=== PATIENT | male | born 1945 | race Caucasian/White ===

== ENCOUNTER 2018-09-10 11:04 | Inpatient (IN) ==
[~2018-09-10 11:04] MED LIST: Propofol 500 MG/50 ML INFUS..BTL ONE
[2018-09-10] MEDS ORDERED: Lidocaine -MPF 2% 2 ML VIAL ONE ×2 (11:05→13:20)
[2018-09-10] MEDS ORDERED: Tranexamic Acid 1,000 MG/10 ML VIAL ONE ×2 (11:05→13:20)
[2018-09-10] MEDS ORDERED: *HR* Propofol 200 MG/20 ML VIAL IVP ONE ×2 (11:05→13:20)
[2018-09-10] MEDS ORDERED: Ringers Solution, Lactated 1,000 ML IVC SCH ×2 (11:30→15:10)
[2018-09-10] MEDS ORDERED: CeFAZolin Syr 2,000MG/20 ML 2,000 MG/20 ML SYRINGE IVPB ONE (11:30)
--- NOTE | 2018-09-10 11:34 | History & Physical Report ---
Date of Encounter: 09/10/18 Time of Encounter: 11:34 24 Hour HP Update - Instructions Instructions: If the History and Physical is less than 30 days old and was completed prior to A.M. admission and or procedure and has NOT been updated on calendar day of procedure please complete this update prior to performing procedure. - Update Patient reports changes in Medical Condition: No Changes in examination, assessment, or condition: No Changes in Medication: No Preop tests/diagnostics Reviewed: Yes Surgery Remains Indicated: Yes Consent for Planned Operative Procedure(s) Verified: Yes - Pre-Operative Checklist Preoperative Checklist Indicated: No Prophylactic Antibiotic Ordered: Yes Is VTE Prophylaxis Indicated?: Yes
[2018-09-10] MEDS ORDERED: *HR* Promethazine 25 MG/ML VIAL IVP PRN ×2 (12:08→15:10)
[2018-09-10] MEDS ORDERED: traMADol 50 MG TABLET PO ONE (12:08)
[2018-09-10] MEDS ORDERED: Acetaminophen IV 1,000 MG/100 ML INFUS..BTL IVPB ONE (12:08)
[2018-09-10] MEDS ORDERED: Albuterol 2.5 MG/3 ML NEBULIZER IH ONE (12:08)
[2018-09-10] MEDS ORDERED: *HR* HYDROmorphone (PF) 1 MG/ML SYRINGE IVP PRN (12:08)
[2018-09-10] MEDS ORDERED: *HR* OxyCODONE Immed Rel 5 MG TABLET PO PRN (12:08)
[2018-09-10] MEDS ORDERED: Celecoxib 200 MG CAPSULE PO ONE (12:08)
[2018-09-10] MEDS ORDERED: Gabapentin 300 MG CAPSULE PO ONE (12:08)
[2018-09-10] MEDS ORDERED: Ondansetron 4 MG/2 ML VIAL IVP ONE (12:08)
[2018-09-10] MEDS ORDERED: Gabapentin 100 MG CAPSULE ONE (12:13)
[2018-09-10] MEDS ORDERED: Celecoxib 100 MG CAPSULE PO ONE (12:13)
[2018-09-10] MEDS ORDERED: Gabapentin 300 MG CAPSULE ONE (12:13)
[2018-09-10] MEDS ORDERED: traMADol 50 MG TABLET ONE (12:13)
[2018-09-10] MEDS ORDERED: Lidocaine -MPF 2% 5 ML VIAL ONE (12:14)
[2018-09-10] MEDS ORDERED: Acetaminophen IV 1,000 MG/100 ML INFUS..BTL ONE (12:14)
[2018-09-10] MEDS ORDERED: *HR* Midazolam HCl 2 MG/2 ML VIAL ONE (12:15)
[2018-09-10] MEDS ORDERED: *HR* PHENYLEPHRINE 1,000 MCG/10 ML SYRINGE IVP ONE ×3 (12:16→14:10)
--- NOTE | 2018-09-10 12:17 | Anesthesia Evaluation PreOp ---
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 (ANXIETY, DEPRESSION) Other Medical History: GERD (CONTROLLED) Anesthesia History: No Prior Anesthetic Complications, Past Anesthesia Alcohol Use: none Drug use: none Medications and Allergies Amlodipine Besylate 10 mg PO DAILY 09/10/18 [History] Hydroxyurea [Hydrea] 500 mg PO DAILY 09/10/18 [History] Omeprazole [PriLOSEC] 20 mg PO DAILY 09/10/18 [History] Sertraline [Zoloft] 50 mg PO HS 09/10/18 [History] Tramadol HCl [Ultram] 50 mg PO Q6H PRN 09/10/18 [History] hydroCHLOROthiazide [Hydrochlorothiazide] 25 mg PO QAM 09/10/18 [History] Allergy/AdvReac Type Severity Reaction Status Date / Time No Known Allergies Allergy Unverified 09/10/18 12:00 - Meds/Allergy Pre-op Review Medications Reviewed: Yes Allergies Reviewed: Yes Beta Blockers on Current Med List: No Anesthesia Results - Labs Laboratory Tests 08/28/18 08/28/18 11:54 11:54 Hgb 14.0 Plt Count 317 Potassium 4.0 Creatinine 1.01 Est GFR (Non-Af Amer) > 60 Glucose 87 Calcium 9.7 Anesthesia Exam Vital Signs/O2 Sat, Most Current Temp Pulse Resp BP Pulse Ox 97.9 F 92 18 151/87 97 09/10/18 11:21 09/10/18 11:21 09/10/18 11:21 09/10/18 11:21 09/10/18 11:21 Weight: 92 KG - BMI 31 NPO (# of Hours): 8 - HEENT Mallampati: II Teeth: Edentulous Denture Type: Upper: Complete, Lower: Complete - Cardiac Rhythm: Regular - Pulmonary Breath Sounds: bilateral Clear Anesthesia Assess/Plan ASA Score: 2 Anesthetic Plan: MAC, Spinal Monitoring Plan: Standard Monitors Recovery Plan: PACU
[2018-09-10] MEDS ORDERED: Ethanol\\Acetic Acid\\Na Ace\\Ben 1,000 ML IRRIG.SOLN IR ONE (12:22)
[2018-09-10] MEDS ORDERED: Propofol 500 MG/50 ML INFUS..BTL ONE ×2 (12:24→13:20)
--- NOTE | 2018-09-10 12:46 | Anesthesia Procedures ---
Date of Encounter: 09/10/18 Time of Encounter: 12:37 Procedures: Anesthesia - Epidural/Spinal Patient ID/Chart reviewed: Yes Patient examined: Yes Consent Obtained: Yes Supplemental Oxygen: Nasal Cannula Supplemental Oxygen Rate (L/min): 2 Sedation: Versed (mg): 1 Site Prep: Aseptic Technique, Sterile prep and drape, 0.5% Chlorhexidine/Alcohol Patient position: upright Local Anesthetic: Lidocaine 1% Amount of Local Anesthetic used: 2 Interspace Used: L3-L4 Blood: No CSF: Yes (24g pencan x2 passes) Paresthesia: No Spinal Dose: 3ml 0.5% bup plain isobaric Procedure: berhane procedure well, no immediate comp
--- NOTE | 2018-09-10 13:48 | Orthopedic Operative Note ---
Date of procedure: 09/10/18 Pre-op diagnosis: Left hip arthritis Post-op diagnosis: same Procedure: Procedure: Left Total Hip Replacment robotic-assisted Estimated blood loss: 200 cc Hardware: Metal and polyethylene replacement. Teresa DM Cup: 58 cup Femoral size 6 anteverted Anato stem Head: - 4head with Philomena Procedural Notes: Grade 4 arthritic changes femoral head acetabular socket, procedure performed with robotic assistance. Operative leg 5 mm shorter than nonoperative as measured by preoperative CT scan. Operative procedure: The patient was brought to the operating room and placed on the operating room table. After general anesthesia was administered the patient was placed in the lateral decubitus position with the operative leg up. All pressure points were padded appropriately and the head was stabilized in the neutral position. The operative extremity was prepped and draped in the sterile surgical fashion patient received IV antibiotic prior to skin incision. 3 Steinmann pins were placed in the iliac crest 3 cm proximal to the anterior superior iliac spine this was for the robotic-assisted sensor. This was done through a small 2 cm incision. A standard posterior approach is made to the operative hip, the incision was made through the skin and subcutaneous tissue hemostasis was obtained with Bovie cautery. Using careful sharp dissection the fascia was identified and incised exposing the external rotators. The greater trochanter was marked, and length was measured at this time utilizing robotic assistance. The external rotators were released off the greater trochanter and tagged with #2 FiberWire suture. The capsule was T'd open and the hip was brought into internal rotation. Patient noted to have grade 4 arthritic changes femoral head. The femoral neck cut was made at the appropriate level roughly 15 mm proximal to the lesser trochanter aced on preoperative templating. An anterior capsulotomy was performed for the anterior retractor. Soft tissues removed from the acetabulum. Patient noted to have grade 4 arthritic changes acetabulum. The acetabulum reference point was confirmed. The acetabulum was then mapped with robotic assistance. Based on the preoperative plan the acetabulum was reamed in one step with a 58 reamer. The 58 acetabulum was impacted with robotic assistance and 39 degrees of abduction and 19 degrees of anteversion. The hip was brought back in to internal rotation and prepared with the box shook patcher followed by the canal finder followed by the reaming process to a size 13 broaching process in 20 degrees anteversion. It was broached up to the domenica ropriate size 6 Trial reduction revealed leg lengths close to normal. The femoral implant was impacted in place in 20 degrees of anteversion. Trial reduction found the hip to be stable with -4 head and Philomena. The trials were removed and the real implants were impacted in place. The hip was reduced, patient had robotic confirmed leg length of 3 mm longer than the contralateral side. The hip had excellent stability with forward flexion to 90 degrees adduction of 30 degrees and internal rotation of 60 degrees. The hip had no shuck. The hip sat with an antibacterial solution. It was irrigated out with 2 L of pulse irrigation. The Steinmann pins were removed. The hip was closed by the PA. The deep tissue was irrigated and closed deep with #1 PDS suture superficially with 0 PDS suture and skin was closed with Dermabond and zip tie. The patient was placed in a sterile dressing and abduction pillow. The patient was extubated and transferred to the recovery room in stable condition. Anesthesia: spinal Surgeon: Quinten Edge Was there an bacteriology research assistant present: No Estimated blood loss (cc): 200 Condition: stable Disposition: PACU
--- NOTE | 2018-09-10 14:50 | Anesthesia Evaluation Post Op ---
Date of Encounter: 09/10/18 Time of Encounter: 14:49 - Discharge PostOp Status: Transfer Patient to floor (Patient's vital signs have been reviewed. Patient is stable postoperatively and has adequately recovered from anesthesia. Patient is determined to have stable airway patency and respiratory function including respiratory rate and oxygen saturation. Patient has a stable heart rate, blood pressure and adequate hydration. Patients mental status is acceptable. Patients temperature is appropriate. Pain and nausea are adequately controlled.)
[2018-09-10] MEDS ORDERED: Ondansetron 4 MG/2 ML VIAL IVP PRN (15:10)
[2018-09-10] MEDS ORDERED: traMADol 50 MG TABLET PO PRN (15:10)
[2018-09-10] MEDS ORDERED: MOM Conc 10 ML UD.LIQ PO PRN (15:10)
[2018-09-10] MEDS ORDERED: Sennosides 8.6 MG TABLET PO PRN (15:10)
[2018-09-10] MEDS ORDERED: Naloxone 0.4 MG/ML INJ IVP PRN (15:10)
[2018-09-10] MEDS: HYDROcodone BIT/Homatropine 5 MG TABLET PO PRN ×2 (15:53→20:40)
[2018-09-10 16:20] LABS: Hematocrit 37.9 % (37.5-50.1); Hemoglobin 12.4 g/dL (12.9-16.9)
[2018-09-10] MEDS: Ascorbic Acid 500 MG TABLET PO SCH (17:22)
[2018-09-10] MEDS: *HR* OxyCODONE Immed Rel 5 MG TABLET PO PRN ×2 (17:22→22:52)
[2018-09-10] MEDS: *HR* Enoxaparin 30 MG/0.3 ML SYRINGE SQ SCH (17:22)
[2018-09-10] MEDS ORDERED: *HR* Enoxaparin 30 MG/0.3 ML SYRINGE SQ SCH (18:00)
[2018-09-10] MEDS: Temazepam 15 MG CAPSULE PO PRN (22:52)
[2018-09-11] MEDS: HYDROcodone BIT/Homatropine 5 MG TABLET PO PRN (02:02)
[2018-09-11 04:29] LABS: Basophils % 0.5 %; Eosinophils # 0.1 K/mcL (0.0-0.6); Eosinophils % 0.7 %; Hematocrit 37.9 % (37.5-50.1); Hemoglobin 12.5 g/dL (12.9-16.9); Immature Granulocytes % 0.8 % (0-4); Lymphocytes # 1.1 K/mcL (0.6-4.6); Mean Corpuscular Hemoglobin 33.6 pg (28.0-33.3); Mean Corpuscular Volume 101.9 fL (83.0-100.0); Monocytes # 0.7 K/mcL (0.0-1.3); Monocytes % 8.4 %; Neutrophils # 6.4 K/mcL (1.6-8.9); Platelet Count 311 K/mcL (140-400); Red Blood Count 3.72 M/mcL (4.19-5.50); Red Cell Distribution Width 16.1 % (11.5-14.5); Segmented Neutrophils % 76.6 %
[2018-09-11 04:40] LABS: BUN/Creatinine Ratio 26 (6-26); Blood Urea Nitrogen 26 mg/dL (8-23); Calcium 9.1 mg/dL (8.6-10.3); Carbon Dioxide 28 mEq/L (23-29); Chloride 98 mEq/L (98-107); Glucose 143 mg/dL (70-105); Osmolality,Calculated 291 (280-300); Potassium 3.8 mEq/L (3.5-5.1); Sodium 137 mEq/L (136-145); eGFR For Non-African Americans > 60 (> 60)
[2018-09-11] MEDS: *HR* Enoxaparin 30 MG/0.3 ML SYRINGE SQ SCH ×2 (05:28→17:14)
--- NOTE | 2018-09-11 06:51 | Orthopedics Progress Note ---
Date of Encounter: 09/11/18 Time of Encounter: 06:50 Subjective Interval history: Patient was seen this morning doing well without complaints. Afebrile vital signs stable. Operative extremity: Neurovascularly intact Dressing clean dry and intact Calves nontender Assessment and plan: Continue with postoperative care Hematocrit 37 Objective Vital signs: Vital Signs Temp Pulse Pulse Resp BP Pulse Ox 09/11/18 06:20 99.9 F H 94 17 153/78 93 09/11/18 05:33 79 09/11/18 03:52 98.1 F 88 16 142/72 96 09/10/18 23:05 97.9 F 91 17 169/78 95 09/10/18 23:00 88 09/10/18 21:04 77 09/10/18 19:04 98.1 F 82 17 146/72 93 09/10/18 15:50 97.5 F L 78 16 131/73 97 09/10/18 15:23 97.5 F L 78 17 131/73 97 09/10/18 15:04 97.7 F 76 14 128/79 97 09/10/18 14:54 97.7 F 71 14 126/76 96 09/10/18 14:44 80 16 115/77 94 09/10/18 14:34 73 16 124/70 97 09/10/18 14:24 98.7 F 73 16 95/57 94 09/10/18 12:50 80 16 81/53 94 09/10/18 12:45 80 16 115/63 94 09/10/18 12:27 80 16 134/97 94 09/10/18 11:21 97.9 F 92 18 151/87 97 Intake and Output 09/10/18 09/10/18 09/11/18 15:59 23:59 07:59 Intake Total 120 / 660 540 / 660 100 / 100 Output Total 200 / 1050 850 / 1050 200 / 200 Balance -80 / -390 -310 / -390 -100 / -100 Intake: IV Fluids 120 / 220 100 / 220 Ofirmev 1,000 mg/100 ml 1,000 100 / 100 mg In 100 ml @ 400 mls/hr IVPB ONCE ONE Rx#:[id number] Ancef Syringe 2,000 MG/20 ML 2, 20 / 20 000 mg In 20 ml @ 200 mls/hr IVPB PREOP ONE Rx#:[id number] Ancef 2,000 MG In 0.9 % Sodium 100 / 100 Chloride 100 ML @ 200 mls/hr IVPB Q8H [facility] Rx#:[id number] Oral 440 / 440 100 / 100 Output: Estimated Blood Loss 200 / 200 Catheter 850 / 850 200 / 200 Other: Weight 92.079 kg Blood Glucose* 146 - Labs CBC & BMP: 09/11/18 03:38 09/11/18 03:38 Labs: Abnormal lab results RBC 3.72 M/mcL (4.19-5.50) L 09/11/18 03:38 Hgb 12.5 g/dL (12.9-16.9) L 09/11/18 03:38 MCV 101.9 fL (83.0-100.0) H 09/11/18 03:38 MCH 33.6 pg (28.0-33.3) H 09/11/18 03:38 RDW 16.1 % (11.5-14.5) H 09/11/18 03:38 MPV 9.0 fL (9.4-12.4) L 09/11/18 03:38 BUN 26 mg/dL (8-23) H 09/11/18 03:38 Glucose 143 mg/dL (70-105) H 09/11/18 03:38 - VTE Documentation of Mechanical Device: Venous foot pump, device Consult Discharge Plan - Plan Referrals: Chery Strong, HUNTING GUIDE [Primary Care Provider] -
[2018-09-11] MEDS: amLODIPine 5 MG TABLET PO SCH (08:09)
[2018-09-11] MEDS: hydroCHLOROthiazide 25 MG TABLET PO SCH (08:10)
[2018-09-11] MEDS: Hydroxyurea 500 MG CAPSULE PO SCH (08:10)
[2018-09-11] MEDS: Ascorbic Acid 500 MG TABLET PO SCH ×2 (08:10→17:13)
[2018-09-11] MEDS: Multivit/Ca/Min/Fe/FA 1 TAB TABLET PO SCH (08:10)
--- NOTE | 2018-09-11 09:04 | Event Note ---
Date of Encounter: 09/11/18 Time of Encounter: 11:10 Date of procedure: 09/10/18 Pre-op diagnosis: Left hip arthritis Post-op diagnosis: same Procedure: Procedure: Left Total Hip Replacment robotic-assisted POD#1 Patient seen at bedside. A&Ox3 Dressing and incision c/d/i No calf tenderness, erythema, or warmth. Neurovascularly intact b/l LE. Labwork, vitals, and medications reviewed. Pain control: Adequate Participating in PT. All questions and concerns addressed. Educated on use of incentive spirometer, ambulation, and hydration. Patient educated on post-operative restrictions and care. Addressed: Patient incontinent since prostate cancer surgery - states this is at his baseline. D/C plan: ECF - pending placement Short CBC 09/11/18 09/10/18 Range/Units 03:38 15:28 WBC 8.3 (4.3-11.1) K/mcL Hgb 12.5 L 12.4 L (12.9-16.9) g/dL Hct 37.9 37.9 (37.5-50.1) % Plt Count 311 (140-400) K/mcL Neutrophils # 6.4 (1.6-8.9) K/mcL BMP 09/11/18 Range/Units 03:38 Sodium 137 (136-145) mEq/L Potassium 3.8 (3.5-5.1) mEq/L Chloride 98 (98-107) mEq/L Carbon Dioxide 28 (23-29) mEq/L BUN 26 H (8-23) mg/dL Creatinine 1.00 (0.70-1.30) mg/dL Glucose 143 H (70-105) mg/dL Calcium 9.1 (8.6-10.3) mg/dL Vital Signs Temp Pulse Pulse Resp BP Pulse Ox 09/11/18 11:20 98.2 F 101 16 135/70 94 09/11/18 06:20 99.9 F H 94 17 153/78 93 09/11/18 05:33 79 09/11/18 03:52 98.1 F 88 16 142/72 96 09/10/18 23:05 97.9 F 91 17 169/78 95 09/10/18 23:00 88 09/10/18 21:04 77 09/10/18 19:04 98.1 F 82 17 146/72 93 09/10/18 15:50 97.5 F L 78 16 131/73 97 09/10/18 15:23 97.5 F L 78 17 131/73 97 09/10/18 15:04 97.7 F 76 14 128/79 97 09/10/18 14:54 97.7 F 71 14 126/76 96 09/10/18 14:44 80 16 115/77 94 09/10/18 14:34 73 16 124/70 97 09/10/18 14:24 98.7 F 73 16 95/57 94 Intake and Output 09/10/18 09/11/18 09/11/18 23:59 07:59 15:59 Intake Total 540 / 660 100 / 640 540 / 640 Output Total 850 / 1050 200 / 200 Balance -310 / -390 -100 / 440 540 / 440 Intake: IV Fluids 100 / 220 Ancef 2,000 MG In 0.9 % Sodium 100 / 100 Chloride 100 ML @ 200 mls/hr IVPB Q8H [facility] Rx#:[id number] Oral 440 / 440 100 / 640 540 / 640 Output: Catheter 850 / 850 200 / 200 Other: Meal Lunch Percent of Meal Consumed 75% # Voids 1 Blood Glucose* 146
--- NOTE | 2018-09-11 09:04 | Physician Discharge Referral ---
ExtendedCare Referral Info Transfer To: [facility] Provider in Charge: Dr. Quinten Edge - Diagnosis (1) Status post total hip replacement, left Priority: Primary Status: Acute (2) Arthritis of left hip Priority: Primary Status: Chronic (3) Bladder stone Priority: Secondary Status: Chronic (4) HTN (hypertension) Priority: Secondary Status: Chronic (5) History of prostate cancer Priority: Secondary Status: Chronic (6) Polycythemia vera Priority: Secondary Status: Chronic (7) Incontinence of urine Priority: Secondary Status: Chronic Expected Duration of Placement: less than 30 days Prognosis: Good Aware of Diagnosis: Patient Aware of Prognosis: Patient - Transfer Medications Prescriptions: Aspirin Enteric Coated [Aspirin EC] 325 mg PO BID 10 Days #20 tablet. Docusate Sodium [Colace] 100 mg PO BID 5 Days #10 capsule Acetaminophen [Non-Aspirin Extra Strength] 500 mg PO Q6H PRN 7 Days #28 tablet PRN Reason: Mild To Moderate Pain OxyCODONE Immed Rel [Roxicodone 5 MG] 5 mg PO Q6HR PRN 5 Days #20 tablet PRN Reason: Severe Pain Home Medications: Amlodipine Besylate 10 mg PO DAILY 09/10/18 [History] Hydroxyurea [Hydrea] 500 mg PO DAILY 09/10/18 [History] Omeprazole [PriLOSEC] 20 mg PO DAILY 09/10/18 [History] Sertraline [Zoloft] 50 mg PO HS 09/10/18 [History] Tramadol HCl [Ultram] 50 mg PO Q6H PRN 09/10/18 [History] hydroCHLOROthiazide [Hydrochlorothiazide] 25 mg PO QAM 09/10/18 [History] Acetaminophen [Non-Aspirin Extra Strength] 500 mg PO Q6H PRN 7 Days #28 tablet 09/11/18 [Rx] Aspirin Enteric Coated [Aspirin EC] 325 mg PO BID 10 Days #20 tablet. 09/11/18 [Rx] Docusate Sodium [Colace] 100 mg PO BID 5 Days #10 capsule 09/11/18 [Rx] OxyCODONE Immed Rel [Roxicodone 5 MG] 5 mg PO Q6HR PRN 5 Days #20 tablet 09/11/18 [Rx] Allergies/Adverse Reactions: Allergy/AdvReac Type Severity Reaction Status Date / Time No Known Allergies Allergy Unverified 09/10/18 12:00 - Respiratory Orders Smoking Cessation: Smoking cessation has been advised. For more information, call the [place] Tobacco Quit Line at 8-058-KQGM-NOW. - Ancillary Orders May use pressure relief devices daily prn, May go on SHADIA w/family/respon green party w/meds at nurse discretion PRN, May consult with Dentist, General Accountant, Boxing Instructor PRN - Mobility Orders Chair, Ambulate - Rehabiliation Orders Rehab Potential: Good Rehab Orders: Evaluation for Physical Therapy, Evaluation for Occupational Therapy Other: Total Hip replacement Precautions Apply cold therapy 3-6x/day for 20 minutes at a time. Encourage ambulation throughout the day and incentive spirometer 10x/hour. Elevate affected extremity as tolerated. Brace: Wear hip abduction pillow when laying/sleeping - Treatments Skin tear care topically daily PRN per policy List/Other: Opsite placed. Keep dressing intact until first follow up appointment. If greater than 50% saturated, notify office, remove dressing and place appropriate dressing back in place. Leave Zipline intact. Opsite dressing is water resistant, not water-proof. OK to shower, but do not get dressing wet. - Diet Orders Regular CERTIFICATION: I certify that the transfer of the above named patient to an Extended Care Facility is necessary for the continuing treatment of the diagnosis listed. The above information is true and accurate reflection of patient's current condition. Confidential - Redisclosure prohibited without a patient's written consent.
--- NOTE | 2018-09-11 09:04 | Discharge Summary ---
Orders not resulted at time of discharge: Pending orders 09/10/18 13:58 Surgical Pathology [PTH] Routine 09/12/18 04:00 Basic Metabolic Panel DAILY Complete Blood Count [HEME] DAILY Date of Encounter: 09/13/18 Time of Encounter: 09:05 - Discharge Diagnosis (1) Arthritis of left hip Priority: Primary Status: Chronic (2) Status post total hip replacement, left Priority: Primary Status: Acute (3) HTN (hypertension) Priority: Secondary Status: Chronic Qualifiers: Hypertension type: unspecified Qualified Code(s): I10 - Essential (primary) hypertension (4) Polycythemia vera Priority: Secondary Status: Chronic (5) History of prostate cancer Priority: Secondary Status: Chronic (6) Bladder stone Priority: Secondary Status: Chronic - Hospital Course Hospital course: Mr. Candelaria is a 72 year old male Date of procedure: 09/10/18 Pre-op diagnosis: Left hip arthritis Post-op diagnosis: same Procedure: Procedure: Left Total Hip Replacment robotic-assisted POD#3 Patient seen at bedside. A&Ox3 Dressing and incision c/d/i No calf tenderness, erythema, or warmth. Neurovascularly intact b/l LE. Labwork, vitals, and medications reviewed. Pain control: Adequate Participating in PT. All questions and concerns addressed. Educated on use of incentive spirometer, ambulation, and hydration. Patient educated on post-operative restrictions and care. Addressed: see above. D/C plan: [facility] for rehab Outpatient ortho follow up arranged. - Time Spent with Patient Total time spent providing and/or coordinating discharge services: - Discharge Medications Prescriptions: New Docusate Sodium [Colace] 100 mg PO BID 5 Days #10 capsule Acetaminophen [Non-Aspirin Extra Strength] 500 mg PO Q6H PRN 7 Days #28 tablet PRN Reason: Mild To Moderate Pain OxyCODONE Immed Rel [Roxicodone 5 MG] 5 mg PO Q6HR PRN 5 Days #20 tablet PRN Reason: Severe Pain Aspirin Enteric Coated [Aspirin EC] 325 mg PO BID 10 Days #20 tablet.dr Continued Tramadol HCl [Ultram] 50 mg PO Q6H PRN PRN Reason: Pain Sertraline [Zoloft] 50 mg PO HS Omeprazole [PriLOSEC] 20 mg PO DAILY Hydroxyurea [Hydrea] 500 mg PO DAILY hydroCHLOROthiazide [Hydrochlorothiazide] 25 mg PO QAM Amlodipine Besylate 10 mg PO DAILY Home Medications: Amlodipine Besylate 10 mg PO DAILY 09/10/18 [History] Hydroxyurea [Hydrea] 500 mg PO DAILY 09/10/18 [History] Omeprazole [PriLOSEC] 20 mg PO DAILY 09/10/18 [History] Sertraline [Zoloft] 50 mg PO HS 09/10/18 [History] Tramadol HCl [Ultram] 50 mg PO Q6H PRN 09/10/18 [History] hydroCHLOROthiazide [Hydrochlorothiazide] 25 mg PO QAM 09/10/18 [History] Acetaminophen [Non-Aspirin Extra Strength] 500 mg PO Q6H PRN 7 Days #28 tablet 09/11/18 [Rx] Aspirin Enteric Coated [Aspirin EC] 325 mg PO BID 10 Days #20 tablet. 09/11/18 [Rx] Docusate Sodium [Colace] 100 mg PO BID 5 Days #10 capsule 09/11/18 [Rx] OxyCODONE Immed Rel [Roxicodone 5 MG] 5 mg PO Q6HR PRN 5 Days #20 tablet 09/11/18 [Rx] Allergies/Adverse Reactions: Allergy/AdvReac Type Severity Reaction Status Date / Time No Known Allergies Allergy Unverified 09/10/18 12:00 Date of admission: 09/10/18 15:09 Primary care physician: Chery Strong CNP Consults: 09/10/18 15:10 Consult to Nurse Navigator [CONS] Routine Comment: ortho navigator Consult to Nutrition [CONS] Routine Comment: Consulting Provider: NUTRITION Reason for Dietary Consult: Other Other:: Proper nutrition to facilitate wound healing Consult to Occupational Therapy [CONS] Routine Comment: Evaluate, develop and implement POC Reason for Consult: total hip replacement Does patient have active BEDREST order?: No Is patient medically & hemodynamically stable?: Yes Consult to Physical Therapy [CONS] Routine Comment: Evaluate, develop and implement POC Reason for Consult: total hip replacement Does patient have active BEDREST order?: No Is patient medically & hemodynamically stable?: Yes Consult to Pillowcase Turner [CONS] Routine Reason for SW Consult: post op joint replacement RT Post Op Consult [CONS] Routine Discharging clinician: Quinten Edge Anticipated date of discharge: 09/13/18 - VTE Documentation of Mechanical Device: Venous foot pump, device Labs on day of discharge: Labs from last 24 hours 09/11/18 09/11/18 09/10/18 03:38 03:38 15:28 WBC 8.3 RBC 3.72 L Hgb 12.5 L 12.4 L Hct 37.9 37.9 MCV 101.9 H MCH 33.6 H MCHC 33.0 RDW 16.1 H Plt Count 311 MPV 9.0 L Immature Gran % 0.8 Seg Neutrophils % 76.6 Lymphocytes % 13.0 Monocytes % 8.4 Eosinophils % 0.7 Basophils % 0.5 Neutrophils # 6.4 Lymphocytes # 1.1 Monocytes # 0.7 Eosinophils # 0.1 Basophils # 0.0 Sodium 137 Potassium 3.8 Chloride 98 Carbon Dioxide 28 BUN 26 H Creatinine 1.00 Est GFR ( Amer) > 60 Est GFR (Non-Af Amer) > 60 BUN/Creatinine Ratio 26 Glucose 143 H Calculated Osmolality 291 Calcium 9.1 - Impressions ITS Impressions Hip X-Ray 09/10/18 01:00 IMPRESSION: Postsurgical changes from left total hip arthroplasty. No evidence of acute osseous abnormalities. The surgical hardware appears in appropriate position. D/ / Ruben Li MD / Ruben Li MD Interpreting Provider: Ruben Li MD - Patient Status Disposition: Transfer Inpatient Rehab Fac Condition: Good Functional capacity at discharge: uses cane/walker Overall status at discharge: patient is progressing back to baseline - Discharge Instructions Follow Up With: Chery Strong CNP [Primary Care Provider] - Elisabet Aguirre PAC [Physician Resident Care Supervisor] - 09/20/18 9:45 am Additional Instructions: Discharge Instructions: Total Hip Replacement Please call [facility] ([phone]), your Primary Care Physician, or report to the Emergency Room if you have any of the following symptoms: Nausea, vomiting, fever greater that 101.5, swelling, chest pain, shortness of breath, increased pain/redness/drainage/odor for your incision site, numbness/tingling, or any other concerning symptoms. ACTIVITY:Weight-bearing as tolerated for 8 weeks with hip dislocation precautions that physical therapy taught you. You may progress as tolerated under the guidance of your physical therapist. You do not need to sleep with a pillow between your legs. You can also seep on the operative side or on your stomach. Incentive Spirometer 10 times an hour. MEDICATIONS: Upon discharge resume your home medications. Take all the medications as prescribed. Take a stool softener if taking narcotic pain medications. Stool softeners are only effective if you drink enough fluids. Drink 6-8 glass of water or fluids a day, unless this is not allowed for another health problem. Despite using stool softeners, if you haven't had a bowel movement in 3 days, please switch to a gentle laxative. Gentle laxatives are sold over the counter. You should have a bowel movement within 24 hours, if not call the office. You will be discharged from the hospital with a prescription for pain medication. You are encouraged to decrease the use of narcotic pain medication as tolerated. Should you require a refill, please call the office. [facility] prescribes narcotic pain medication for only 4-6 weeks after surgery. If you require pain medication beyond this time period, you may be referred to your Primary Care Physician or to the Pain Clinic for further evaluation. Plan ahead for refills on pain medication as many narcotics either need to be picked up at the office or mailed. It is best to call 48-72 hours in advance of needing a prescription refill so you don't run out of medication. To help control the post-operative pain, you may take NSAIDs (Aleve,Advil, Motrin, ibuprofen, naprosyn) or Tylenol as prescribed on the bottle in addition to the pain medication. ANTICOAGULATION (blood thinners): Continue your Aspirin, Lovenox or Coumadin as prescribed to help prevent a blood clot in the leg or in the lungs. As long as your incision remains dry and you tolerate the NSAIDs (Aleve, Advil, Motrin, Ibuprofen, Naprosyn), it is OK to use the NSAIDS while you are taking your anticoagulation medication. Should your incision start to drain, stop the NSAID and contact our office. Common symptoms of blood clot in the legs include: localized pain, swelling, calf tenderness, redness or discoloration of the skin. Blood clot in the lung symptoms include: shortness of breath, rapid pulse, sweating, and chest pain that worsens with deep breathing, coughing up blood, lightheadedness, feelings of anxiety. If you experience any of these symptoms notify your physician immediately, go to the emergency room, or if having trouble breathing, call 911. WOUND CARE: Leave the dressing on for 7 to 10days. You may change the dressing if it is saturated greater than 50%. Do not get the dressing wet at anytime. Wash your hands with antibacterial soap, rinse and dry prior to any wound care. If you have shaniqua the visiting nurse or rehab facility can remove the stapes 10-14 days after surgery and place steri-strips across the wound. Leave the steri-strips in place until they fall off on their own. You may let water from the shower run on top of the steri-strips. If you do not have a visiting nurse or rehab facility, you will need to return to the office at 10-14 days for the shaniqua to be removed. If you have itching or redness around the dressing call the office. FOLLOW-UP: Please follow up with your surgeon in the orthopedic clinic in 6 weeks from the day of surgery. If you have shaniqua that need to be removed, you will need to come back to the office in 10-14 days from the day of surgery. - Diet and Activity Activity: as per physical therapy Diet: advance to your usual diet
[2018-09-11] MEDS: tiZANidine 4 MG TABLET PO PRN ×2 (10:40→17:13)
[2018-09-11] MEDS: *HR* OxyCODONE Immed Rel 5 MG TABLET PO PRN ×3 (10:41→22:40)
[2018-09-12] MEDS: *HR* OxyCODONE Immed Rel 5 MG TABLET PO PRN ×3 (06:15→20:31)
[2018-09-12] MEDS: *HR* Enoxaparin 30 MG/0.3 ML SYRINGE SQ SCH ×2 (06:16→17:03)
[2018-09-12] MEDS: tiZANidine 4 MG TABLET PO PRN ×2 (06:17→14:36)
[2018-09-12 08:28] LABS: Basophils # 0.1 K/mcL (0.0-0.2); Basophils % 0.6 %; Eosinophils % 0.5 %; Immature Granulocytes % 1.5 % (0-4); Lymphocytes # 0.9 K/mcL (0.6-4.6); Lymphocytes % 11.5 %; Mean Corpuscular HGB Conc 33.3 g/dL (31.6-35.5); Mean Corpuscular Hemoglobin 34.3 pg (28.0-33.3); Mean Corpuscular Volume 102.8 fL (83.0-100.0); Mean Platelet Volume 9.4 fL (9.4-12.4); Monocytes # 0.6 K/mcL (0.0-1.3); Monocytes % 7.6 %; Neutrophils # 6.3 K/mcL (1.6-8.9); Platelet Count 265 K/mcL (140-400); Red Blood Count 3.21 M/mcL (4.19-5.50); Red Cell Distribution Width 15.9 % (11.5-14.5); Segmented Neutrophils % 78.3 %
[2018-09-12 08:30] LABS: BUN/Creatinine Ratio 25 (6-26); Blood Urea Nitrogen 33 mg/dL (8-23); Calcium 9.2 mg/dL (8.6-10.3); Carbon Dioxide 29 mEq/L (23-29); Chloride 96 mEq/L (98-107); Glucose 163 mg/dL (70-105); Osmolality,Calculated 285 (280-300); Sodium 132 mEq/L (136-145); eGFR For Non-African Americans 54 (> 60)
[2018-09-12] MEDS: Multivit/Ca/Min/Fe/FA 1 TAB TABLET PO SCH (10:01)
[2018-09-12] MEDS: amLODIPine 5 MG TABLET PO SCH (10:01)
[2018-09-12] MEDS: Ascorbic Acid 500 MG TABLET PO SCH ×2 (10:01→17:03)
[2018-09-12] MEDS: Hydroxyurea 500 MG CAPSULE PO SCH (10:01)
[2018-09-12] MEDS: hydroCHLOROthiazide 25 MG TABLET PO SCH (10:02)
[2018-09-12] MEDS: HYDROcodone BIT/Homatropine 5 MG TABLET PO PRN (10:11)
--- NOTE | 2018-09-12 13:00 | Event Note ---
Date of Encounter: 09/12/18 Time of Encounter: 11:30 Date of procedure: 09/10/18 Pre-op diagnosis: Left hip arthritis Post-op diagnosis: same Procedure: Procedure: Left Total Hip Replacment robotic-assisted POD#2 Patient seen at bedside. A&Ox3 Dressing and incision c/d/i No calf tenderness, erythema, or warmth. Neurovascularly intact b/l LE. Labwork, vitals, and medications reviewed. Pain control: Adequate Participating in PT. All questions and concerns addressed. Educated on use of incentive spirometer, ambulation, and hydration. Patient educated on post-operative restrictions and care. Addressed: Patient incontinent since prostate cancer surgery - states this is at his baseline. D/C plan: [facility]CF - discharge to [facility] 09/13 Short CBC 09/12/18 Range/Units 07:55 WBC 8.1 (4.3-11.1) K/mcL Hgb 11.0 L D (12.9-16.9) g/dL Hct 33.0 L (37.5-50.1) % Plt Count 265 (140-400) K/mcL Neutrophils # 6.3 (1.6-8.9) K/mcL BMP 09/12/18 Range/Units 07:55 Sodium 132 L (136-145) mEq/L Potassium 4.0 (3.5-5.1) mEq/L Chloride 96 L (98-107) mEq/L Carbon Dioxide 29 (23-29) mEq/L BUN 33 H (8-23) mg/dL Creatinine 1.30 (0.70-1.30) mg/dL Glucose 163 H (70-105) mg/dL Calcium 9.2 (8.6-10.3) mg/dL Vital Signs Temp Pulse Pulse Resp BP Pulse Ox 09/12/18 10:29 97.8 F 74 16 127/69 94 09/12/18 06:34 98.7 F 74 18 180/75 94 09/12/18 03:37 98.4 F 98 17 122/51 94 09/12/18 00:03 98.4 F 79 17 113/66 95 09/11/18 23:00 91 09/11/18 18:25 98.4 F 90 18 149/70 100 09/11/18 15:54 99.1 F 100 18 151/74 97 Intake and Output 09/11/18 09/12/18 09/12/18 23:59 07:59 15:59 Intake Total 240 / 1280 480 / 480 Output Total 100 / 500 250 / 250 Balance 140 / 780 -250 / 230 480 / 230 Intake: Oral 240 / 1180 480 / 480 Output: Urine 100 / 300 250 / 250 Other: Meal Dinner Breakfast Percent of Meal Consumed 100% 10% # Voids 1 Weight 95 kg Patient Weight 09/12/18 23:59 Weight 95 kg
[2018-09-13] MEDS: Temazepam 15 MG CAPSULE PO PRN (00:43)
[2018-09-13] MEDS: *HR* Enoxaparin 30 MG/0.3 ML SYRINGE SQ SCH (06:06)
[2018-09-13] MEDS: *HR* OxyCODONE Immed Rel 5 MG TABLET PO PRN ×2 (06:06→14:43)
--- NOTE | 2018-09-13 06:24 | Orthopedics Progress Note ---
Date of Encounter: 09/13/18 Time of Encounter: 06:23 Subjective Interval history: Patient was seen this morning doing well without complaints. Afebrile vital signs stable. Operative extremity: Neurovascularly intact Dressing clean dry and intact Calves nontender Assessment and plan: Continue with postoperative care Hematocrit 33 discharged today Objective Vital signs: Vital Signs Temp Pulse Resp BP Pulse Ox 09/13/18 04:20 98.1 F 80 17 152/74 96 09/12/18 22:38 98.1 F 104 16 156/76 94 09/12/18 19:09 98.7 F 106 16 152/69 96 09/12/18 14:25 99.3 F 108 18 170/51 96 09/12/18 10:29 97.8 F 74 16 127/69 94 09/12/18 06:34 98.7 F 74 18 180/75 94 Intake and Output 09/12/18 09/12/18 09/13/18 15:59 23:59 07:59 Intake Total 960 / 1550 590 / 1550 Output Total 600 / 1700 850 / 1700 Balance 360 / -150 -260 / -150 Intake: Oral 960 / 1550 590 / 1550 Output: Urine 600 / 1700 850 / 1700 Other: Meal Lunch Dinner Percent of Meal Consumed 50% 100% - Labs CBC & BMP: 09/12/18 07:55 09/12/18 07:55 Labs: Abnormal lab results RBC 3.21 M/mcL (4.19-5.50) L 09/12/18 07:55 Hgb 11.0 g/dL (12.9-16.9) L D 09/12/18 07:55 Hct 33.0 % (37.5-50.1) L 09/12/18 07:55 MCV 102.8 fL (83.0-100.0) H 09/12/18 07:55 MCH 34.3 pg (28.0-33.3) H 09/12/18 07:55 RDW 15.9 % (11.5-14.5) H 09/12/18 07:55 MPV 9.0 fL (9.4-12.4) L 09/11/18 03:38 Sodium 132 mEq/L (136-145) L 09/12/18 07:55 Chloride 96 mEq/L (98-107) L 09/12/18 07:55 BUN 33 mg/dL (8-23) H 09/12/18 07:55 Est GFR (Non-Af Amer) 54 (> 60) L 09/12/18 07:55 Glucose 163 mg/dL (70-105) H 09/12/18 07:55 POC Glucose 146 mg/dL (70-99) H 09/11/18 02:08 - VTE Documentation of Mechanical Device: Venous foot pump, device Consult Discharge Plan - Plan Referrals: Chery Strong, [employer] [Primary Care Provider] - Prescriptions: Aspirin Enteric Coated [Aspirin EC] 325 mg PO BID 10 Days #20 tablet. Docusate Sodium [Colace] 100 mg PO BID 5 Days #10 capsule Acetaminophen [Non-Aspirin Extra Strength] 500 mg PO Q6H PRN 7 Days #28 tablet PRN Reason: Mild To Moderate Pain OxyCODONE Immed Rel [Roxicodone 5 MG] 5 mg PO Q6HR PRN 5 Days #20 tablet PRN Reason: Severe Pain
[2018-09-13] MEDS: amLODIPine 5 MG TABLET PO SCH (08:47)
[2018-09-13] MEDS: Ascorbic Acid 500 MG TABLET PO SCH (08:47)
[2018-09-13] MEDS: hydroCHLOROthiazide 25 MG TABLET PO SCH (08:47)
[2018-09-13] MEDS: Hydroxyurea 500 MG CAPSULE PO SCH (08:47)
[2018-09-13] MEDS: Multivit/Ca/Min/Fe/FA 1 TAB TABLET PO SCH (08:47)
[2018-09-13 10:48] VITALS: BP 144/67
[2018-09-13] MEDS: HYDROcodone BIT/Homatropine 5 MG TABLET PO PRN (11:09)
== END 2018-09-13 14:59 | DRG 470 ==
LOC: SAMDAY 11:04 → 3NENU 15:09
PROVIDERS: ADMIT Orthopaedic Surgery; ATTEND Orthopaedic Surgery